=== PATIENT | female | born 1970 | race Caucasian/White ===

== ENCOUNTER 2018-12-27 12:43 | Outpatient (CLI) | payer BC ==
[~2018-12-27 12:43] MED LIST: BARIUM SULFATE 340 ML SUSP.RECON***PROCEDURE AREA ONLY**DONT ENTER PO ONE
== END 2018-12-27 23:59 | disposition home or self-care (01) ==
LOC: RAD 12:43
PROVIDERS: ATTEND Otolaryngology
DX: R13.14 Dysphagia, pharyngoesophageal phase (principal)
CPT/HCPCS: 74230